=== PATIENT | female | born 1975 | race American Indian/Alaskan Native ===

== ENCOUNTER 2020-11-30 21:54 | Emergency (ER) | payer OTHER ==
--- NOTE | 2020-11-30 22:20 | EDM.PDOC ---
ED HPI GENERAL MEDICAL PROBLEM - General Chief Complaint: Skin Complaint Stated Complaint: open boil under stomach Time Seen by Provider: 11/30/20 22:10 - History of Present Illness INITIAL COMMENTS - FREE TEXT/NARRATIVE: 45-year-old female presents the emergency room with an abscess on her abdomen. Patient noticed this on Monday and then it burst yesterday. The patient went to the [facility] today was started on amoxicillin clavulanic acid and doxycycline 100 mg twice daily there is no wound debridement or wound cleaning according to the patient patient has not had any fevers or chills patient has some surrounding redness she says this is not changing. Patient states that on Monday this spontaneously opened up on its own she felt much better after it did. Patient denies any possibility being however she is not on any form of control. She has history of type 2 diabetes she is on insulin and Metformin. Right Lower Abdomen Pain Score (Numeric/FACES): 10 - Related Data Allergies Allergy/AdvReac Type Severity Reaction Status Date / Time No Known Allergies Allergy Verified 11/30/20 22:07 Home Meds: Home Meds Doxycycline [Doxycycline Monohydrate] 100 mg PO BID 11/30/20 [History] Insulin Glargine,Hum.Rec.Anlog [Basaglar Kwikpen U-100] 25 unit SQ DAILY 11/30/20 [History] lisinopriL [Lisinopril] 10 mg PO DAILY 11/30/20 [History] metFORMIN [Glucophage XR] 500 mg PO DAILY 11/30/20 [History] Social & Family History - Tobacco Use Tobacco Use Status *Q: Current Every Day Tobacco User Years of Tobacco use: 5 Packs/Tins Daily: 0.2 - Caffeine Use Caffeine Use: Reports: None - Recreational Drug Use Recreational Drug Use: No ED ROS GENERAL - Review of Systems Review Of Systems: See Below Constitutional: Reports: No Symptoms. Denies: Fever, Chills HEENT: Reports: No Symptoms Respiratory: Reports: No Symptoms Cardiovascular: Reports: No Symptoms GI/Abdominal: Reports: Abdominal Pain (Abdominal wall pain). Denies: Constipation, Diarrhea, Nausea, Vomiting : Reports: No Symptoms Musculoskeletal: Reports: No Symptoms Skin: Reports: Other (See history of present illness) Neurological: Reports: No Symptoms Psychiatric: Reports: No Symptoms ED EXAM, SKIN/RASH Exam: See Below Exam Limited By: No Limitations General Appearance: Alert, No Apparent Distress Head: Atraumatic, Normocephalic Neck: Normal Inspection, Supple, Non-Tender, Full Range of Motion Respiratory/Chest: No Respiratory Distress, Lungs Clear Cardiovascular: Regular Rate, Rhythm, No Edema, No Murmur GI/Abdominal: Normal Bowel Sounds, Soft, Non-Tender, Other (Patient has a 1.5 x 3 cm open area this has a thick film over the top this is debrided back no deep pockets identified.) Back Exam: Normal Inspection. No: CVA Tenderness (L), CVA Tenderness (R) Extremities: Normal Inspection, No Pedal Edema Neurological: Alert, Oriented, Normal Cognition Skin: Other (The patient is a mild cellulitis surrounding the abscess site this extends around 4 to 5 cm superiorly and slightly less inferiorly) Course - Vital Signs Last Recorded V/S: Last Vital Signs Temp 36.1 C 11/30/20 22:04 Pulse 95 11/30/20 22:04 Resp 16 11/30/20 22:04 BP 149/89 H 11/30/20 22:04 Pulse Ox 99 11/30/20 22:04 - Orders/Labs/Meds Orders: Active Orders 24 hr Category Date Time Status Pharmacy to Dose - Vancomycin Med 11/30/20 22:37 Pending 1 dose .XX ONETIME ONE Vancomycin 1.25 gm Med 11/30/20 23:00 Active Sodium Chloride 0.9% [Normal Saline] 250 ml IV ONETIME Medication Orders Vancomycin HCl 1.25 gm/ Sodium (Chloride) 250 mls @ 166.667 mls/hr IV ONETIME ONE Stop: 12/01/20 00:29 Last Admin: 11/30/20 23:16 Dose: 166.667 mls/hr Documented by: GERRY Vancomycin HCl (Pharmacy To Dose - Vancomycin) 1 dose .XX ONETIME ONE Stop: 11/30/20 22:38 Labs: Laboratory Tests 11/30/20 11/30/20 11/30/20 Range/Units 22:40 22:40 22:40 WBC 7.98 (3.98-10.04) K/mm3 RBC 4.42 (3.98-5.22) M/mm3 Hgb 13.4 (11.2-15.7) gm/dl Hct 38.8 (34.1-44.9) % MCV 87.8 (79.4-94.8) fl MCH 30.3 (25.6-32.2) pg MCHC 34.5 (32.2-35.5) g/dl RDW Std Deviation 39.8 (36.4-46.3) fL Plt Count 193 (182-369) K/mm3 MPV 11.5 (9.4-12.3) fl Neutrophils % (Manual) 74 H (40-60) % Band Neutrophils % 0 (0-10) % Lymphocytes % (Manual) 18 L (20-40) % Atypical Lymphs % 0 % Monocytes % (Manual) 7 (2-10) % Eosinophils % (Manual) 1 (0.7-5.8) % Basophils % (Manual) 0 L (0.1-1.2) Platelet Estimate Adequate RBC Morph Comment Normal Sodium 140 (136-145) mEq/L Potassium 3.6 (3.5-5.1) mEq/L Chloride 105 (98-107) mEq/L Carbon Dioxide 24 (21-32) mEq/L Anion Gap 14.6 (5-15) BUN 23 H (7-18) mg/dL Creatinine 0.8 (0.55-1.02) mg/dL Est Cr Clr Drug Dosing 76.68 mL/min Estimated GFR (MDRD) > 60 (>60) mL/min BUN/Creatinine Ratio 28.8 H (14-18) Glucose 374 H (70-99) mg/dL Calcium 8.7 (8.5-10.1) mg/dL Total Bilirubin 0.2 (0.2-1.0) mg/dL AST 12 L (15-37) U/L ALT 18 (14-59) U/L Alkaline Phosphatase 99 (46-116) U/L Total Protein 6.9 (6.4-8.2) g/dl Albumin 2.8 L (3.4-5.0) g/dl Globulin 4.1 gm/dL Albumin/Globulin Ratio 0.7 L (1-2) HCG, Qual Negative (NEGATIVE) Meds: Medications Generic Name Dose Route Start Last Admin Trade Name Freq PRN Reason Stop Dose Admin Vancomycin HCl 1.25 gm/ Sodium 250 mls @ 166.667 mls/hr 11/30/20 23:00 11/30/20 23:16 Chloride IV 06/29/21 00:29 166.667 mls/hr ONETIME ONE Administration Vancomycin HCl 1 dose 11/30/20 22:37 Pharmacy To Dose - Vancomycin .XX 11/30/20 22:38 ONETIME ONE - Re-Assessments/Exams Free Text/Narrative Re-Assessment/Exam: 11/30/20 22:39 Her diabetes we will go ahead and check a CBC and a CMP with her surrounding cellulitis we will give her a dose of vancomycin. Anticipate having her continue the Augmentin and doxycycline. 12/01/20 00:15 Doing well at this time she has been started on the Vanco myosin and has 20 minutes for the vancomycin to complete. We will continue the oral Augmentin and doxycycline with follow-up as already arranged. Departure - Departure Time of Disposition: 00:16 Disposition: Home, Self-Care 01 Clinical Impression: Abdominal wall abscess, Abdominal wall cellulitis - Discharge Information Referrals: PCP,None [Primary Care Provider] - Forms: ED Department Discharge Additional Instructions: Return to the emergency room with any questions problems or worsening symptoms. Do your dressing changes as we discussed 2 times daily. Continue the antibiotics as started at the clinic. Follow-up as the clinic is scheduled for you. Sepsis Event Note (ED) - Evaluation Sepsis Screening Result: No Definite Risk - Focused Exam Vital Signs: Vital Signs Temp Pulse Resp BP Pulse Ox 11/30/20 22:04 36.1 C 95 16 149/89 H 99 - My Orders Last 24 Hours: My Active Orders 11/30/20 22:37 Pharmacy to Dose - Vancomycin 1 dose .XX ONETIME ONE 11/30/20 23:00 Vancomycin 1.25 gm Sodium Chloride 0.9% [Normal Saline] 250 ml IV ONETIME - Assessment/Plan Last 24 Hours: My Active Orders 11/30/20 22:37 Pharmacy to Dose - Vancomycin 1 dose .XX ONETIME ONE 11/30/20 23:00 Vancomycin 1.25 gm Sodium Chloride 0.9% [Normal Saline] 250 ml IV ONETIME
== END 2020-12-01 00:40 | disposition home or self-care (01) ==
LOC: JD.ED 21:54
DX: L03.311 Cellulitis of abdominal wall (principal); L02.211 Cutaneous abscess of abdominal wall; E11.9 Type 2 diabetes mellitus without complications; Z79.4 Long term (current) use of insulin; Z72.0 Tobacco use
CPT/HCPCS: 36415; 80053; 84703; 85007; 85027; 87070; 87077; 87186; 87205; 96365; 99283; J3370; J7050; 99284

== ENCOUNTER 2021-12-04 05:57 | Inpatient (IN) | payer OTHER ==
[2021-12-04] MEDS ORDERED: Lidocaine 1% with EPINEPHrine 1:100,000 20 ML MDV INJECT ONE (06:55)
[2021-12-04] MEDS ORDERED: Lidocaine/EPINEPHrine/Tetracaine Soln 1 ML TOP ONE (06:55)
[2021-12-04] MEDS ORDERED: HYDROmorphone 1 MG/ML Syringe IVPUSH ONE (06:56)
[2021-12-04] MEDS ORDERED: Metoclopramide 10 MG/2 ML SDV IVPUSH ONE (07:44)
[2021-12-04] MEDS: Sodium Chloride 0.9% 10 ML Syringe FLUSH PRN ×2 (07:46→08:04)
[2021-12-04 08:29] LABS: HEMOGLOBIN A1C 12.7 %
[2021-12-04] MEDS ORDERED: Insulin Glargine,Human Rec. Analog 100 Units/ML 3 ML Pen SUBCUT ONE (08:33)
[2021-12-04] MEDS ORDERED: Insulin Regular, Human 100 Units/ML 3 ML Vial SUBCUT ONE ×2 (08:34→17:10)
[2021-12-04] MEDS ORDERED: Clindamycin Phosphate in D5W 900 MG in Premix Bag 1 BAG IV ONE ×2 (08:36)
[2021-12-04] MEDS ORDERED: Sodium Chloride 0.9% 1,000 ML IV SCH ×2 (08:45→18:15)
[2021-12-04] MEDS ORDERED: Lactated Ringers 1,000 ML IV ONE ×2 (13:33→17:15)
[2021-12-04] MEDS ORDERED: 50% Dextrose in Water 50 ML Syringe IVPUSH PRN (13:40)
[2021-12-04] MEDS: Ketorolac 30 MG/ML SDV IVPUSH SCH ×2 (14:11→20:29)
[2021-12-04] MEDS: Pregabalin 75 MG Cap PO SCH ×2 (14:11→20:29)
[2021-12-04] MEDS: Enoxaparin 40 MG/0.4 ML Syringe SUBCUT SCH (14:12)
[2021-12-04] MEDS ORDERED: Clindamycin Phosphate in D5W 900 MG in Premix Bag 1 BAG IV SCH ×2 (15:00)
[2021-12-04] MEDS: HYDROmorphone 0.5 MG/0.5 ML Syringe IVPUSH PRN ×2 (17:41→22:31)
[2021-12-04] MEDS ORDERED: Vancomycin 1.5 GM in Sodium Chloride 0.9% 500 ML IV ONE (19:00)
[2021-12-04] MEDS ORDERED: cefTRIAXone 2 GM in Sodium Chloride 0.9% 100 ML IV SCH (19:00)
[2021-12-04] MEDS: Insulin Regular, Human 100 Units/ML 3 ML Vial SUBCUT SCH (19:12)
[2021-12-04] MEDS: metroNIDAZOLE/Normal Saline 500 MG in Premix Bag 1 BAG IV SCH (19:18)
[2021-12-04] MEDS: Sodium Chloride 0.9% 1,000 ML IV SCH (20:12)
[2021-12-05] MEDS: Ondansetron 4 MG/2 ML SDV IVPUSH PRN ×2 (00:56→09:18)
[2021-12-05] MEDS: Ketorolac 30 MG/ML SDV IVPUSH SCH (02:01)
[2021-12-05] MEDS: metroNIDAZOLE/Normal Saline 500 MG in Premix Bag 1 BAG IV SCH ×3 (02:04→17:40)
[2021-12-05] MEDS: Acetaminophen/HYDROcodone 325-5 MG Tab PO PRN (02:21)
[2021-12-05] MEDS: Sodium Chloride 0.9% 1,000 ML IV SCH ×3 (03:06→23:00)
[2021-12-05] MEDS ORDERED: Magnesium Sulfate/Water 4 GM in Premix Bag 1 BAG IV ONE (07:15)
[2021-12-05] MEDS: Insulin Regular, Human 100 Units/ML 3 ML Vial SUBCUT SCH ×4 (07:37→18:00)
[2021-12-05] MEDS ORDERED: Lisinopril 10 MG Tab PO SCH (09:00)
[2021-12-05] MEDS ORDERED: Insulin Glargine,Human Rec. Analog 100 Units/ML 3 ML Pen SUBCUT SCH (09:00)
[2021-12-05] MEDS ORDERED: Insulin Glargine,Human Rec. Analog 100 Units/ML 3 ML Pen SUBCUT ONE (09:00)
[2021-12-05] MEDS: Magnesium Oxide 400 MG Tab PO SCH (09:42)
[2021-12-05] MEDS: Pregabalin 75 MG Cap PO SCH ×3 (09:45→20:58)
[2021-12-05] MEDS ORDERED: Sodium Chloride 0.9% 500 ML IV ONE (09:58)
[2021-12-05] MEDS ORDERED: Acetaminophen 325 MG Tab PO PRN (10:00)
[2021-12-05] MEDS: Enoxaparin 40 MG/0.4 ML Syringe SUBCUT SCH (14:18)
[2021-12-05] MEDS: HYDROmorphone 0.5 MG/0.5 ML Syringe IVPUSH PRN ×2 (16:55→21:54)
[2021-12-05] MEDS: cefTRIAXone 2 GM in Sodium Chloride 0.9% 100 ML IV SCH (18:44)
[2021-12-06] MEDS: Ondansetron 4 MG/2 ML SDV IVPUSH PRN ×2 (00:36→09:27)
[2021-12-06] MEDS: metroNIDAZOLE/Normal Saline 500 MG in Premix Bag 1 BAG IV SCH ×2 (02:00→11:35)
[2021-12-06] MEDS: Acetaminophen/HYDROcodone 325-5 MG Tab PO PRN ×3 (02:02→16:34)
[2021-12-06] MEDS: Sodium Chloride 0.9% 1,000 ML IV SCH ×2 (05:31→12:30)
[2021-12-06] MEDS: HYDROmorphone 0.5 MG/0.5 ML Syringe IVPUSH PRN ×3 (05:34→22:10)
[2021-12-06] MEDS ORDERED: Furosemide 20 MG/2 ML VIAL IVPUSH ONE (06:31)
[2021-12-06] MEDS ORDERED: Insulin Regular, Human 100 Units/ML 3 ML Vial SUBCUT ONE (06:32)
[2021-12-06] MEDS ORDERED: Sodium Chloride 0.9% 1,000 ML IV SCH (06:45)
[2021-12-06] MEDS: Pregabalin 75 MG Cap PO SCH ×3 (09:26→21:09)
[2021-12-06] MEDS: Magnesium Oxide 400 MG Tab PO SCH (09:27)
[2021-12-06] MEDS: Insulin Regular, Human 100 Units/ML 3 ML Vial SUBCUT SCH ×3 (09:29→18:07)
[2021-12-06] MEDS: Insulin Glargine,Human Rec. Analog 100 Units/ML 3 ML Pen SUBCUT SCH (09:46)
[2021-12-06] MEDS: Enoxaparin 40 MG/0.4 ML Syringe SUBCUT SCH (14:27)
[2021-12-06] MEDS: cefTRIAXone 2 GM in Sodium Chloride 0.9% 100 ML IV SCH (19:48)
[2021-12-06] MEDS ORDERED: Insulin Glargine,Human Rec. Analog 100 Units/ML 3 ML Pen SUBCUT SCH (21:00)
[2021-12-06] MEDS: metroNIDAZOLE 500 MG Tab PO SCH (21:09)
[2021-12-07] MEDS: Sodium Chloride 0.9% 1,000 ML IV SCH (02:50)
[2021-12-07] MEDS: Acetaminophen/HYDROcodone 325-5 MG Tab PO PRN ×2 (02:52→08:34)
[2021-12-07] MEDS ORDERED: Furosemide 20 MG/2 ML VIAL IVPUSH ONE (06:30)
[2021-12-07] MEDS: Insulin Regular, Human 100 Units/ML 3 ML Vial SUBCUT SCH ×2 (07:29→08:55)
[2021-12-07] MEDS: Magnesium Oxide 400 MG Tab PO SCH (08:33)
[2021-12-07] MEDS: Pregabalin 75 MG Cap PO SCH (08:34)
[2021-12-07] MEDS: metroNIDAZOLE 500 MG Tab PO SCH (08:34)
[2021-12-07] MEDS: Insulin Glargine,Human Rec. Analog 100 Units/ML 3 ML Pen SUBCUT SCH (08:35)
[2021-12-07] MEDS: HYDROmorphone 0.5 MG/0.5 ML Syringe IVPUSH PRN (10:07)
[2021-12-07] MEDS ORDERED: Enoxaparin 30 MG/0.3 ML Syringe SUBCUT SCH (14:00)
[2021-12-07] MEDS ORDERED: Insulin Glargine,Human Rec. Analog 100 Units/ML 3 ML Pen SUBCUT SCH (21:00)
[2021-12-08] MEDS ORDERED: Pregabalin 75 MG Cap PO SCH (09:00)
== END 2021-12-07 12:55 | DRG 871 ==
LOC: JD.ED 05:57 → JD.MS 12:04 → JD.ICU 18:41
PROVIDERS: ADMIT Internal Medicine Cardiovascular Disease; ATTEND Pediatrics
PROC: 0H96XZZ Drainage of Back Skin, External Approach (ICD-10-PCS; principal; 2021-12-04)
DX: A41.9 Sepsis, unspecified organism (principal); N17.0 Acute kidney failure with tubular necrosis; L02.212 Cutaneous abscess of back [any part, except buttock and flank]; E87.1 Hypo-osmolality and hyponatremia; E78.5 Hyperlipidemia, unspecified; F17.210 Nicotine dependence, cigarettes, uncomplicated; E11.22 Type 2 diabetes mellitus with diabetic chronic kidney disease; E11.65 Type 2 diabetes mellitus with hyperglycemia; E66.9 Obesity, unspecified; I12.9 Hypertensive chronic kidney disease with stage 1 through stage 4 chronic kidney disease, or unspecified chronic kidney disease; N18.30 Chronic kidney disease, stage 3 unspecified; Z68.36 Body mass index [BMI] 36.0-36.9, adult; Z79.899 Other long term (current) drug therapy; Z79.4 Long term (current) use of insulin; Z98.890 Other specified postprocedural states
CPT/HCPCS: 36415; 76775; 76775-26; 80048; 80053; 82009; 82040; 82947; 83036; 83605; 83735; 84100; 85025; 85610; 85730; 86140; 93976; 93976-26; 96361; 96365; 96375; 99284; 99284-25; A9270-GY; J0696; J1170; J1650; J1815-GY; J1885; J1940; J2405; J2765; J3370; J3475; J3490; J7030; J7040; J7050; J7120

== ENCOUNTER 2024-09-17 23:03 | Inpatient (IN) | payer OTHER ==
[2024-09-17] MEDS: Sodium Chloride 0.9% 1,000 ML IV ONE (23:41)
[2024-09-17] MEDS: Sodium Chloride 0.9% 10 ML Syringe FLUSH PRN (23:42)
[2024-09-18 00:09] LABS: LACTIC ACID 1.2 mmol/L (0.4-2.0)
[2024-09-18 00:11] LABS: BASOPHILS PERCENT AUTO 0.2 % (0.0-1.0); EOSINOPHILS PERCENT AUTO 0.1 % (0.0-6.0); HEMATOCRIT 30.1 % (37.0-47.0); HEMOGLOBIN 9.8 gm/dl (12.0-16.0); IMMATURE GRAN ABSOLUTE AUTO 0.23 K/mm3 (0.00-0.05); IMMATURE GRAN PERCENT AUTO 1.3 % (0.0-0.4); LYMPHOCYTES ABSOLUTE AUTO 0.5 K/mm3 (1.0-4.8); LYMPHOCYTES PERCENT AUTO 2.6 % (24.0-44.0); MEAN CORPUSCULAR HEMOGLOBIN 29.1 pg (28.0-32.0); MEAN CORPUSCULAR HGB CONC 32.6 g/dl (32.0-36.0); MEAN CORPUSCULAR VOLUME 89.3 fl (83.0-99.0); MEAN PLATELET VOLUME 12.6 fl (9.4-12.3); MONOCYTES ABSOLUTE AUTO 0.6 K/mm3 (0.0-0.8); MONOCYTES PERCENT AUTO 3.1 % (0.0-8.0); NEUTROPHILS ABSOLUTE AUTO 16.7 K/mm3 (1.8-7.7); NEUTROPHILS PERCENT AUTO 92.7 % (41.0-71.0); PLATELET COUNT,PLT 141 K/mm3 (150-400); RED BLOOD CELL COUNT 3.37 M/mm3 (4.10-5.30); WHITE BLOOD CELL COUNT,WBC 18.02 K/mm3 (3.9-11.3)
[2024-09-18 00:12] LABS: A/G RATIO 0.2 (1-2); ALBUMIN 1.1 g/dl (3.4-5.0); ANION GAP 13.1 (5-15); BILIRUBIN TOTAL 0.1 mg/dL (0.2-1.0); CALCIUM 8.1 mg/dL (8.5-10.1); CREATININE 2.4 mg/dL (0.55-1.02); EST CRCL DRUG DOSING (CG) 34.9 mL/min; MAGNESIUM 1.3 mg/dL (1.8-2.4); POTASSIUM,K 3.1 mEq/L (3.5-5.1); PROTEIN TOTAL,TP 5.7 g/dl (6.4-8.2)
[2024-09-18 00:22] LABS: SLIDE REVIEW ABNORMAL SMEAR
[2024-09-18] MEDS: Magnesium Sulf/Wat 2 GM/50 mL 2 GM in Premix Bag 1 BAG IV ONE ×2 (01:20→08:44)
[2024-09-18] MEDS: Potassium Bicarbonate/Cit Ac 20 MEQ Effervescent Tab PO ONE (01:20)
[2024-09-18] MEDS: NS + KCl 20mEq/L 1,000 ML IV SCH (01:26)
[2024-09-18] MEDS: Acetaminophen/oxyCODONE 325-5 MG Tab PO ONE (01:26)
[2024-09-18 02:24] LABS: APPEARANCE,URINE CLEAR (Clear); BILIRUBIN,URINE NEGATIVE (Negative); COLOR,URINE YELLOW (Yellow); GLUCOSE,URINE 2+ (Negative); KETONES,URINE NEGATIVE (Negative); LEUKOCYTE ESTERASE,URINE NEGATIVE (Negative); NITRITE,URINE NEGATIVE (Negative); OCCULT BLOOD,URINE 2+ (Negative); PH,URINE 6.5 (5.0-8.0); PROTEIN,URINE 3+ (Negative); UROBILINOGEN,URINE 0.2 (0.2-1.0)
[2024-09-18 02:39] LABS: BACTERIA,URINE MODERATE /hpf (FEW); MUCUS,URINE NOT SEEN /hpf (FEW); RBC,URINE 0-5 /hpf (0-5); WBC CLUMPS,URINE FEW /hpf (NOT SEEN)
[2024-09-18] MEDS: cefTRIAXone 1 GM Vial IVPUSH ONE (03:15)
[2024-09-18] MEDS: Sodium Chloride 0.9% 1,000 ML IV ONE (03:16)
[2024-09-18] MEDS ORDERED: Acetaminophen/HYDROcodone 325-5 MG Tab PO PRN (03:34)
[2024-09-18] MEDS ORDERED: Ondansetron 4 MG Tab.DIS PO PRN (03:34)
[2024-09-18] MEDS: Insulin Regular, Human 100 Units/ML 3 ML Vial SUBCUT ONE (05:15)
[2024-09-18] MEDS: Insulin Regular, Human 100 Units/ML 10 ML Vial ONE (05:16)
[2024-09-18] MEDS ORDERED: Docusate Sodium 100 MG Cap PO PRN (07:34)
[2024-09-18] MEDS ORDERED: Polyethylene Glycol 3350 Powder 17 GM Packet PO PRN (07:34)
[2024-09-18] MEDS ORDERED: Ondansetron 4 MG/2 ML SDV IV PRN (07:34)
[2024-09-18] MEDS: Enoxaparin 40 MG/0.4 ML Syringe SUBCUT SCH (08:45)
[2024-09-18] MEDS: Potassium Chloride 20 MEQ Tab.ER PO ONE (08:47)
[2024-09-18] MEDS: Insulin Glargine,Human Rec. Analog 100 Units/ML 3 ML Pen SUBCUT SCH (08:55)
[2024-09-18] MEDS: Insulin Lispro 100 Unit/ML 3 ML KwikPen SUBCUT SCH (08:58)
[2024-09-18] MEDS: Acetaminophen 325 MG Tab PO PRN (08:58)
[2024-09-18] MEDS: Insulin Lispro 100 Unit/ML 3 ML KwikPen SUBCUT ONE (08:59)
[2024-09-18] MEDS: Insulin Regular, Human 100 Units/ML 10 ML Vial SUBCUT SCH (09:05)
[2024-09-18] MEDS: oxyCODONE 5 MG Tab PO PRN (09:54)
[2024-09-18 10:05] LABS: HEMOGLOBIN A1C 8.4 %
[2024-09-18 10:07] LABS: ANION GAP 13.2 (5-15); BUN/CREATININE RATIO 9.1 (14-18); CALCIUM 7.9 mg/dL (8.5-10.1); CREATININE 2.3 mg/dL (0.55-1.02); EST CRCL DRUG DOSING (CG) 26.92 mL/min; MAGNESIUM 2.3 mg/dL (1.8-2.4); POTASSIUM,K 4.2 mEq/L (3.5-5.1)
[2024-09-18] MEDS: Lactated Ringers 1,000 ML IV SCH (15:09)
[2024-09-18] MEDS ORDERED: Lactated Ringers 1,000 ML IV SCH (16:00)
[2024-09-19] MEDS: cefTRIAXone 2 GM Vial IVPUSH SCH (03:04)
[2024-09-19] MEDS: Acetaminophen/Butalbital/Caffeine 325-50-40 MG Tab PO PRN (04:24)
[2024-09-19 04:46] LABS: BASOPHILS PERCENT AUTO 0.3 % (0.0-1.0); EOSINOPHILS ABSOLUTE AUTO 0.1 K/mm3 (0.0-0.4); EOSINOPHILS PERCENT AUTO 0.8 % (0.0-6.0); HEMATOCRIT 27.9 % (37.0-47.0); HEMOGLOBIN 9.1 gm/dl (12.0-16.0); IMMATURE GRAN ABSOLUTE AUTO 0.29 K/mm3 (0.00-0.05); LYMPHOCYTES ABSOLUTE AUTO 1.4 K/mm3 (1.0-4.8); MEAN CORPUSCULAR HEMOGLOBIN 29.4 pg (28.0-32.0); MEAN CORPUSCULAR HGB CONC 32.6 g/dl (32.0-36.0); MEAN PLATELET VOLUME 12.1 fl (9.4-12.3); MONOCYTES ABSOLUTE AUTO 0.9 K/mm3 (0.0-0.8); MONOCYTES PERCENT AUTO 6.2 % (0.0-8.0); NEUTROPHILS ABSOLUTE AUTO 11.7 K/mm3 (1.8-7.7); NEUTROPHILS PERCENT AUTO 80.7 % (41.0-71.0); PLATELET COUNT,PLT 194 K/mm3 (150-400); WHITE BLOOD CELL COUNT,WBC 14.45 K/mm3 (3.9-11.3)
[2024-09-19 05:19] LABS: A/G RATIO 0.2 (1-2); ALBUMIN 1.1 g/dl (3.4-5.0); BILIRUBIN TOTAL 0.1 mg/dL (0.2-1.0); C-REACTIVE PROTEIN 8.26 mg/dL (<0.30); CALCIUM 8.3 mg/dL (8.5-10.1); CREATININE 2.3 mg/dL (0.55-1.02); EST CRCL DRUG DOSING (CG) 26.92 mL/min; MAGNESIUM 1.9 mg/dL (1.8-2.4); PROTEIN TOTAL,TP 5.6 g/dl (6.4-8.2)
[2024-09-19] MEDS: amLODIPine 5 MG Tab PO SCH (08:17)
[2024-09-19] MEDS: Fluconazole 150 MG Tab PO ONE (09:55)
[2024-09-19] MEDS ORDERED: oxyCODONE 5 MG Tab PO PRN (17:03)
[2024-09-19] MEDS: Nystatin Crm 30 GM Tube TOP PRN (21:11)
[2024-09-20 04:36] LABS: BASOPHILS PERCENT AUTO 0.4 % (0.0-1.0); EOSINOPHILS ABSOLUTE AUTO 0.1 K/mm3 (0.0-0.4); EOSINOPHILS PERCENT AUTO 0.8 % (0.0-6.0); HEMATOCRIT 26.7 % (37.0-47.0); HEMOGLOBIN 8.5 gm/dl (12.0-16.0); IMMATURE GRAN ABSOLUTE AUTO 0.33 K/mm3 (0.00-0.05); IMMATURE GRAN PERCENT AUTO 3.2 % (0.0-0.4); LYMPHOCYTES ABSOLUTE AUTO 1.4 K/mm3 (1.0-4.8); LYMPHOCYTES PERCENT AUTO 13.1 % (24.0-44.0); MEAN CORPUSCULAR HEMOGLOBIN 28.2 pg (28.0-32.0); MEAN CORPUSCULAR HGB CONC 31.8 g/dl (32.0-36.0); MEAN CORPUSCULAR VOLUME 88.7 fl (83.0-99.0); MEAN PLATELET VOLUME 11.2 fl (9.4-12.3); MONOCYTES ABSOLUTE AUTO 0.6 K/mm3 (0.0-0.8); MONOCYTES PERCENT AUTO 5.5 % (0.0-8.0); PLATELET COUNT,PLT 234 K/mm3 (150-400); RED BLOOD CELL COUNT 3.01 M/mm3 (4.10-5.30); WHITE BLOOD CELL COUNT,WBC 10.42 K/mm3 (3.9-11.3)
[2024-09-20 05:08] LABS: A/G RATIO 0.3 (1-2); ALBUMIN 1.1 g/dl (3.4-5.0); ANION GAP 11.6 (5-15); BILIRUBIN TOTAL 0.2 mg/dL (0.2-1.0); C-REACTIVE PROTEIN 4.58 mg/dL (<0.30); CALCIUM 8.4 mg/dL (8.5-10.1); CREATININE 2.1 mg/dL (0.55-1.02); EST CRCL DRUG DOSING (CG) 29.48 mL/min; MAGNESIUM 1.6 mg/dL (1.8-2.4); POTASSIUM,K 3.6 mEq/L (3.5-5.1); PROTEIN TOTAL,TP 5.3 g/dl (6.4-8.2)
[2024-09-20 06:49] LABS: SLIDE REVIEW NORMAL SMEAR
[2024-09-20] MEDS: Enoxaparin 30 MG/0.3 ML Syringe SUBCUT SCH (09:41)
[2024-09-20] MEDS: Magnesium Oxide 400 MG Tab PO ONE (09:41)
== END 2024-09-20 10:52 | disposition home or self-care (01) | DRG 872 ==
LOC: JD.ED 23:03 → JD.MS 09-18 03:34
PROVIDERS: ADMIT Internal Medicine; ATTEND Internal Medicine
DX: A41.51 Sepsis due to Escherichia coli [E. coli] (principal); N17.9 Acute kidney failure, unspecified; E87.1 Hypo-osmolality and hyponatremia; N30.00 Acute cystitis without hematuria; N18.4 Chronic kidney disease, stage 4 (severe); R65.20 Severe sepsis without septic shock; I12.9 Hypertensive chronic kidney disease with stage 1 through stage 4 chronic kidney disease, or unspecified chronic kidney disease; E78.00 Pure hypercholesterolemia, unspecified; D63.1 Anemia in chronic kidney disease; M19.90 Unspecified osteoarthritis, unspecified site; E66.9 Obesity, unspecified; F17.210 Nicotine dependence, cigarettes, uncomplicated; E87.6 Hypokalemia; E88.09 Other disorders of plasma-protein metabolism, not elsewhere classified; E83.42 Hypomagnesemia; E11.65 Type 2 diabetes mellitus with hyperglycemia; E11.22 Type 2 diabetes mellitus with diabetic chronic kidney disease; E11.42 Type 2 diabetes mellitus with diabetic polyneuropathy; E83.51 Hypocalcemia; N20.0 Calculus of kidney; Z79.4 Long term (current) use of insulin; Z79.899 Other long term (current) drug therapy; Z98.890 Other specified postprocedural states; Z68.30 Body mass index [BMI] 30.0-30.9, adult
CPT/HCPCS: 36415; 51798; 71045; 71045-26; 74176; 74176-26; 80048; 80053; 80307; 81001; 81025; 82947; 83036; 83605; 83735; 84100; 85025; 86140; 87040; 87086; 87088; 87186; 87428-QW; 96361; 96365; 96366; 96368; 96375; 97161-GP; 97530-GP; 99285; 99285-25; A9270-GY; J0696; J1650; J1815; J1815-GY; J3475; J3480; J7030; J7120